=== PATIENT | male | born 1970 | race African-American/Black ===

== ENCOUNTER 2017-10-26 18:26 | Emergency (ER) | payer SELFPAY ==
[~2017-10-26] VITALS: Ht 188 cm; Wt 108.9 kg
[2017-10-26 18:39] VITALS: BP 161/99
[2017-10-26 19:52] LABS: Basophils # (auto) 0 uL; Basophils % (auto) 0.1 % (0.0-2.0); Eosinophils # (auto) 0 uL; Eosinophils % (auto) 0.2 % (0.0-7.0); Hematocrit 46.1 % (41.0-53.0); Hemoglobin 15.5 g/dL (13.5-17.5); Lymphocytes # (auto) 0.8 uL; Mean Corpuscular Hemoglobin 28.5 pg (28.0-32.0); Mean Corpuscular Hgb Conc. 33.6 g/dL (32.0-36.0); Mean Corpuscular Volume 84.7 fL (80.0-100.0); Monocytes # (auto) 1.5 uL; Monocytes % (auto) 7.2 % (0.0-12.0); Neutrophils # (auto) 18.2 uL; Neutrophils % (auto) 88.5 % (37.0-80.0); Nucleated Red Blood Cells % 0.2 %; Platelet Count (auto) 270 10^3/uL (140-450); Red Blood Cells 5.44 10^6/uL (4.5-5.90); Red Cell Distribution Width 14.4 % (11.8-14.3); White Blood Cell 20.5 10^3/uL (4.4-10.8)
[2017-10-26 20:11] LABS: Albumin 3.6 g/dL (3.4-5.0); BUN/Creatinine Ratio 10.4; Bilirubin, Total 0.9 mg/dL (0.2-1.0); Calcium 9.3 mg/dL (8.5-10.1); Total Protein 8.4 g/dL (6.4-8.2)
== END 2017-10-26 20:42 | disposition left against medical advice (07) ==
LOC: ER 18:26
DX: R06.02 Shortness of breath (principal); R05 Cough; R09.81 Nasal congestion; Z53.21 Procedure and treatment not carried out due to patient leaving prior to being seen by health care provider
CPT/HCPCS: 36415; 71010; 80053; 85025

== ENCOUNTER 2025-09-30 22:53 | Emergency (ER) | payer OTHER ==
[~2025-09-30] VITALS: Ht 188 cm; Wt 110.0 kg
[2025-09-30] MEDS: cefTRIAXone SOD 1,000 MG VL IM ONE (23:45)
[2025-09-30] MEDS ORDERED: AZITTAB PO (23:45)
[2025-09-30] MEDS: methylPREDNISolone SOD SUCC 125 MG/2 ML VL IM ONE (23:45)
[2025-09-30] MEDS ORDERED: ALBU1.258 IN (23:45)
[2025-09-30] MEDS ORDERED: PRED20TA2 PO (23:45)
--- NOTE | 2025-09-30 23:46 | ED.PDOC ---
SOB-HPI HPI Comments PATIENT COMPLAINING OF COUGH AND TIGHTNESS IN HIS CHEST X1 WEEK. STATES HE HAS A HISTORY ASTHMA. STATES ON GI HE IS FEELING FLU-LIKE SYMPTOMS. SLEPT MOST OF THE DAY. STARTED HAVING COUGH CONGESTION OVER THE WEEKEND, STATES THE COUGH HAS NOT IMPROVED. HE HAS BEEN USING ALBUTEROL TREATMENTS AT HOME WITH MINIMAL IMPROVEMENT. SAYS AT NIGHTTIME IT IS WORSE WHEN HE IS COUGHING UP GREEN PHLEGM. NOTHING MAKES IT BETTER, NOTHING MAKES IT WORSE. Chief Complaint: Asthma Time Seen by MD: 23:24 Reviewed notes: Nurses Notes Information Source: Patient Mode of Arrival: Ambulatory Past Medical History PAST MEDICAL HISTORY: Asthma Constitutional: denies: chills, diaphoresis, fatigue, fever, malaise, sweats, weakness, others EENTM: denies: blurred vision, double vision, ear bleeding, ear discharge, ear drainage, ear pain, ear ringing, eye pain, eye redness, hearing loss, mouth pain, mouth swelling, nasal discharge, nose bleeding, nose congestion, nose pain, photophobia, tearing, throat pain, throat swelling, voice changes, others Respiratory: reports: cough, wheezing Cardiovascular: denies: chest pain, dizzy spells, diaphoresis, Dyspnea on exertion, edema, irregular heart beat, left arm pain, lightheadedness, palpitations, PND, syncope, others Gastrointestinal: denies: abdomen distended, abdominal pain, blood streaked bowels, constipated, diarrhea, dysphagia, difficulty swallowing, hematemesis, melena, nausea, poor appetite, poor fluid intake, rectal bleeding, rectal pain, vomiting, others Genitourinary: denies: burning, dysuria, flank pain, frequency, hematuria, incontinence, penile discharge, penile sore, pain, testicle pain, testicle swelling, urgency, others Neurological: denies: dizziness, fainting, headache, left sided numbness, left sided weakness, numbness, paresthesia, pre-existing deficit, right sided numbness, right sided weakness, seizure, speech problems, tingling, tremors, weakness, others Musculoskeletal: denies: back pain, gout, joint pain, joint swelling, muscle pain, muscle stiffness, neck pain, others Integumetry: denies: bruises, change in color, change in hair/nails, dryness, laceration, lesions, lumps, rash, wounds, others Allergic/Immunocompromised: denies: Difficulty Healing, Frequent Infections, Hives, Itching, others Hematologic/Lymphatic: denies: anemia, blood clots, easy bleeding, easy bruising, swollen glands, others Physical Exam General Appearance: No Apparent Distress, Normal HEENT: Normal ENT Inspection, Pharynx Normal, TMs Normal Neck: Full Range of Motion, Non-Tender, Normal, Normal Inspection Respiratory: Chest Non-Tender, Lungs Clear, No Accessory Muscle Use, No Respiratory Distress, Normal Breath Sounds Cardiovascular: No Edema, No JVD, No Murmur, No Gallop, Normal Peripheral Pulses, Regular Rate/Rhythm Breast Exam: Deferred Gastrointestinal: No Organomegaly, Non Tender, No Pulsatile Mass, Normal Bowel Sounds, Soft Genitalia: Deferred Pelvic: Deferred Rectal: Deferred Extremities: No calf tenderness, Normal capillary refill, Normal inspection, Normal range of motion, Non-tender, No pedal edema Musculoskeletal : Apperance: Normal Neurologic: Alert, 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 Was a procedure done?: No Differential Dx Differential Diagnosis: Asthma, Bronchitis, Pneumonia X-Ray, Labs, Meds, VS Vital Signs Date Time Temp Pulse Resp B/P (MAP) Pulse Ox O2 Delivery O2 Flow Rate FiO2 09/30/25 22:54 97.9 100 24 179/104 99 97.9 X-Ray, Labs, Meds, VS Comment Imaging was reviewed by this provider, there is no obvious pathological or acute disease process. Pending radiology review Labs were reviewed by this provider, no abnormalities Vital signs reviewed by this provider, clinically stable Time of 1ST Reevaluation: 23:46 Reevaluation 1ST: Improved Patient Education/Counseling: Diagnosis, Treatment, Need For Follow Up (Follow up with PCP next available appointment. Return to emergency department if symptoms worsen.) Family Education/Counseling: No Family Present SEPSIS Sepsis Screen Date sepsis recognized/suspect: Sep 30, 2025 Time Sepsis recognized/suspect: 2256 Recent Procedure: No On Antibiotic Therapy: No Respiratory Rate >20: No Heart Rate >90: No Temp<36 C (96.8 F) or >38.3 C: No SBP <90 or MAP <65 mmHG: No New Acute Mental Status Change: No Is the patient on CPAP, BIPAP,: No Physician Orders Albuterol Medneb (Ventolin Medneb) (09/30/25 23:45) Ipratropium Medneb (Atrovent Medneb) (09/30/25 23:45) Ceftriaxone Sodium (Rocephin) (09/30/25 23:45) Methylprednisolone Sod Succ (Solu Medrol (09/30/25 23:45) Vital Signs Date Time Temp Pulse Resp B/P (MAP) Pulse Ox O2 Delivery O2 Flow Rate FiO2 09/30/25 22:54 97.9 100 24 179/104 99 97.9 Departure 1 Departure Time of Disposition: 23:43 Impression: Primary Impression: Acute asthma Additional Impression: Asthmatic bronchitis Qualified Codes: J45.40 - Moderate persistent asthma, uncomplicated Disposition: HOME / SELF CARE / HOMELESS Condition: Stable e-Prescriptions Prednisone (Prednisone) 20 Mg Tab 20 MG PO DAILY for 5 Days, #5 MG Prov: ASTER ARIAS 09/30/25 Azithromycin (Zithromax Z-Lemuel) 250 Mg Tab 250 MG PO DAILY for 5 Days, #5 TAB Prov: ASTER ARIAS 09/30/25 Albuterol Sulfate (Albuterol Sulfate) 1.25 Mg/3 Ml Neb 1.25 MG IN TID PRN, #30 INH Prov: ASTER ARIAS 09/30/25 Discharged With: Self Critical Care Note Critical Care Time?: No Stability Stability form required: No Heart Score Heart Score: Heart Score Response (Comments) Value History N/A 0 EKG N/A 0 Age N/A 0 Risk Factors N/A 0 Troponin N/A 0 Total 0 ASTER ARIAS Sep 30, 2025 23:46
[2025-10-01] MEDS: ALBUTEROL SULF 2.5 MG/0.5ML(0.5%) NEB SOLN NEB ONE (00:02)
[2025-10-01] MEDS: IPRATROPIUM BROM 0.5 MG/2.5ML INH SOL NEB ONE (00:02)
[2025-10-01 00:54] VITALS: BP 166/98; PULSE 78; RESP 19; TEMP 98.8; O2SAT 97
== END 2025-10-01 00:57 | disposition home or self-care (01) ==
LOC: ER 22:53
DX: J45.909 Unspecified asthma, uncomplicated (principal)
CPT/HCPCS: 94640; 96372; 99284; J0696; J2919